=== PATIENT | female | born 1940 | race Native Hawaiian/Other Pacific Islander ===

== ENCOUNTER → 2017-01-11 | Outpatient (CLI) | payer MEDICARE, OTHER ==
[~2017-01-11] MED LIST: COLC0.6T69 PO; OLME20TA14 PO; OMEP20 PO; POTA8TAB7 PO; ROSU5TAB3 PO
== END | disposition home or self-care (01) ==
LOC: RADPV 11:05
PROVIDERS: ATTEND Internal Medicine
DX: J98.11 Atelectasis (principal); I70.0 Atherosclerosis of aorta
CPT/HCPCS: 71020